=== PATIENT | female | born 1985 | race Two or more races ===

== ENCOUNTER 2016-11-11 23:11 | Emergency (ER) | payer OTHER ==
[~2016-11-11] VITALS: Ht 165.1 cm; Wt 57.6 kg
[2016-11-11] MEDS ORDERED: NKM (23:35)
[2016-11-12] MEDS ORDERED: IBUPROFEN600 MG ORAL (00:14)
[2016-11-12] MEDS ORDERED: AMOXICILLIN500 MG ORAL (00:14)
[2016-11-12 00:15] VITALS: BP 107/72
[2016-11-12 00:22] VITALS: BP 109/75
--- NOTE | 2016-11-12 05:14 | Emergency Room Report ---
History of Present Illness General Chief Complaint: Neck Pain Source: Patient Present Illness HPI 31-year-old female presents ED complaining of neck pain. States symptoms started yesterday. The pain to the right side of the neck, 8/10, throbbing, nonradiating. No other aggravating relieving factors. Denies any neck stiffness. Denies any fevers or chills. Patient states that last week she was treated for a "respiratory infection" with a Z-Frederic. Patient denies any earache or sore throat at this time. Denies any fevers or chills. No other aggravating relieving factors. Denies any other associated symptoms Allergies: Coded Allergies: No Known Allergies (Unverified , 11/11/16) Patient History Past Medical History: none Past Surgical History: none Pertinent Family History: none Social History: Denies: alcohol use, drug use, smoking Last Menstrual Period: AUG 31 Now: No : 0 Para: 0 Immunizations: UTD Reviewed Nursing Documentation: PMH: Agreed, PSxH: Agreed Nursing Documentation-PMH Past Medical History: No Stated History Review of Systems All Other Systems: negative except mentioned in HPI Physical Exam Vital Signs Date Time Temp Pulse Resp B/P Pulse Ox O2 Delivery O2 Flow Rate FiO2 11/11/16 23:30 98.6 86 18 107/72 98 Room Air Sp02 EP Interpretation: reviewed, normal General Appearance: no apparent distress, alert, GCS 15, non-toxic Head: normocephalic Eyes: bilateral eye PERRL, bilateral eye normal inspection ENT: hearing grossly normal, normal pharynx, no angioedema, normal voice, TMs + canals normal Neck: full range of motion, no meningismus, no bony tend, supple/symm/no masses Respiratory: chest non-tender, lungs clear, normal breath sounds, speaking full sentences Cardiovascular #1: regular rate, rhythm, no edema Gastrointestinal: normal inspection Rectal: deferred Genitourinary: no CVA tenderness Musculoskeletal: normal inspection Neurologic: alert, oriented x3, responsive, motor strength/tone normal, sensory intact, speech normal Psychiatric: normal inspection Skin: normal inspection Lymphatic: adenopathy - R cervical Medical Decision Making Diagnostic Impression: Primary Impression: Lymphadenopathy of right cervical region Additional Impression: Neck pain ER Course Hospital Course 31-year-old female presents to ED with right-sided neck pain. Recently treated for a infection with antibiotics Differential diagnoses include: Muscle strain, otitis media, lymphadenopathy Clinical course Patient placed on stretcher. After initial history, physical exam reveals a young female in no acute distress. Bilateral TM unremarkable. No pharyngeal erythema. No tonsillar exudates. There is some pronounced submandibular lymphadenopathy on the right side Reassurance given. We will provide another round of antibiotics. Patient instructed to followup with PMD if lymphadenopathy did not resolve Diagnosis - lymphadenopathy of right cervical region, neck pain Stable and discharged home with Rx Amoxicillin, motrin. Instructed to followup with PMD. Return to ED if symptoms recur or worse Last Vital Signs Date Time Temp Pulse Resp B/P Pulse Ox O2 Delivery O2 Flow Rate FiO2 11/11/16 23:30 98.6 86 18 107/72 98 Room Air Status: improved Disposition: HOME, SELF-CARE Condition: Stable Scripts Ibuprofen* (MOTRIN*) 600 Mg Tablet 600 MG ORAL Q8H Y for For Pain, #30 TAB 0 Refills Prov: YADIEL BUENO M.D. 11/12/16 Amoxicillin* (AMOXIL*) 500 Mg Capsule 500 MG ORAL THREE TIMES A DAY, #21 CAP Prov: YADIEL BUENO M.D. 11/12/16 Referrals: NON PHYSICIAN (PCP) Patient Instructions: Lymphadenopathy YADIEL BUENO M.D. Nov 12, 2016 05:14
== END 2016-11-12 00:22 | disposition home or self-care (01) ==
LOC: EMR 23:45
DX: R59.0 Localized enlarged lymph nodes (principal); M54.2 Cervicalgia
CPT/HCPCS: 99284

== ENCOUNTER 2020-01-13 19:45 | Emergency (ER) | payer OTHER ==
[~2020-01-13] VITALS: Ht 165.1 cm; Wt 59.0 kg
[~2020-01-13 19:45] MED LIST: AMOXICILLIN500 MG ORAL; IBUPROFEN600 MG ORAL; NKM
[2020-01-13 19:50] VITALS: BP 118/87
--- NOTE | 2020-01-13 19:50 | NUR ---
ED Nurse Note: pt walked in to ED for C/O SOB and palpitation x 1 week. pt feels like her s/sx is getting worse. sp02 97% room air. HR 112. denies any cough.
--- NOTE | 2020-01-13 19:55 | NUR ---
ED Nurse Note: Received report from YSABEL Garnica. Placed patient in ortho room, patient in stable condition.
--- NOTE | 2020-01-13 20:05 | Emergency Room Report ---
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[employer] And reports that she is on a contraceptive She has been more sedentary at work as well and there were concerned about possible PE Allergies: Coded Allergies: No Known Allergies (Unverified , 11/11/16) COVID-19 Screening Contact w/high risk pt: No Recent Travel to affected area: No Experienced COVID-19 symptoms?: Yes COVID-19 symptoms experienced: Shortness of Breath Patient History Past Medical History: see triage record Last Menstrual Period: na Now: No Reviewed Nursing Documentation: PMH: Agreed; PSxH: Agreed Nursing Documentation-PMH History Of Psychiatric Problem: Yes - depression Review of Systems All Other Systems: negative except mentioned in HPI Physical Exam Vital Signs Date Time Temp Pulse Resp B/P (MAP) Pulse Ox O2 Delivery O2 Flow Rate FiO2 01/13/20 19:46 98.2 112 18 118/87 (97) 97 Room Air Sp02 EP Interpretation: reviewed, normal General Appearance: well appearing, no apparent distress Head: normocephalic, atraumatic Eyes: bilateral eye PERRL, bilateral eye EOMI ENT: hearing grossly normal, normal pharynx, TMs + canals normal, uvula midline Neck: full range of motion, supple, no meningismus, no bony tend Respiratory: lungs clear, normal breath sounds, no rhonchi, no respiratory distress, no retraction, no accessory muscle use Cardiovascular #1: normal peripheral pulses, no edema, no gallop, no JVD, no murmur, tachycardia Gastrointestinal: normal bowel sounds, non tender, soft, no mass, no organomegaly, non-distended, no guarding, no hernia, no pulsatile mass, no rebound Genitourinary: no CVA tenderness Musculoskeletal: normal inspection Neurologic: motor strength/tone normal, gaming department head III-XII nml as tested, oriented x3 , sensory intact, responsive Psychiatric: mood/affect normal Skin: no rash Lymphatic: normal inspection, no adenopathy Medical Decision Making Diagnostic Impression: Primary Impression: Palpitations ER Course Patient is a fairly complex patient with multiple differential to consideration including but not limited to cardiac cardiopulmonary and vascular emergencies Vascular emergencies including pulmonary embolism other differential such as Thyroid disease also considered Patient's initial EKG was tachycardic at 109 beats a minute Therefore d-dimer was also obtained Patient's other blood work is at baseline levels X-ray was read by radiology as normal I did repeat the EKG which was sinus at 90 beats a minute We did discuss regarding further evaluation with CT angios for pulmonary embolism Patient however saturating at 100% Heart rate has improved significantly There is no sign of any pleurisy Patient's main risk factor is contraceptive medication Given the reevaluation it was decided with patient's brother at bedside that CT angios would not be performed at this time patient will have close outpatient follow-up and return with any changes or concerns Labs Test 01/13/20 20:05 White Blood Count 12.0 K/UL (4.8-10.8) Red Blood Count 5.29 M/UL (4.20-5.40) Hemoglobin 14.5 G/DL (12.0-16.0) Hematocrit 44.7 % (37.0-47.0) Mean Corpuscular Volume 85 FL (80-99) Mean Corpuscular Hemoglobin 27.4 PG (27.0-31.0) Mean Corpuscular Hemoglobin Concent 32.4 G/DL (32.0-36.0) Red Cell Distribution Width 12.3 % (11.6-14.8) Platelet Count 266 K/UL (150-450) Mean Platelet Volume 9.0 FL (6.5-10.1) Neutrophils (%) (Auto) 52.1 % (45.0-75.0) Lymphocytes (%) (Auto) 39.0 % (20.0-45.0) Monocytes (%) (Auto) 3.9 % (1.0-10.0) Eosinophils (%) (Auto) 3.6 % (0.0-3.0) Basophils (%) (Auto) 1.5 % (0.0-2.0) D-Dimer 0.23 mg/L FEU (0.00-0.49) Urine HCG, Qualitative Negative (NEGATIVE) Sodium Level 139 MMOL/L (136-145) Potassium Level 3.9 MMOL/L (3.5-5.1) Chloride Level 101 MMOL/L (98-107) Carbon Dioxide Level 28 MMOL/L (21-32) Anion Gap 10 mmol/L (5-15) Blood Urea Nitrogen 10 mg/dL (7-18) Creatinine 0.8 MG/DL (0.55-1.30) Estimat Glomerular Filtration Rate > 60 mL/min (>60) Glucose Level 122 MG/DL (74-106) Calcium Level 10.0 MG/DL (8.5-10.1) EKG Diagnostic Results Rate: tachycardiac Rhythm: other ST Segments: no acute changes Other Impression EKG #2: Sinus rhythm no ST or T wave changes Rhythm Strip Diag. Results EP Interpretation: yes Rate: 90 Rhythm: NSR, no PVC's, no ectopy Chest X-Ray Diagnostic Results Chest X-Ray Diagnostic Results : Chest X-Ray Ordered: Yes # of Views/Limited/Complete: 1 View Indication: Chest Pain EP Interpretation: No Interpretation: no consolidation, no effusion, no pneumothorax Impression: No acute disease Electronically Signed by: X-ray interpreted by radiology Last Vital Signs Date Time Temp Pulse Resp B/P (MAP) Pulse Ox O2 Delivery O2 Flow Rate FiO2 01/13/20 19:50 98.2 112 18 118/87 97 Room Air Status: improved Disposition: HOME, SELF-CARE Condition: Improved Additional Instructions: Patient is provided with the discharge instructions notified to follow up with primary doctor in the next 2-3 days otherwise return to the er with any worsening symptoms. Please note that this report is being documented using [employer] technology. This can lead to erroneous entry secondary to incorrect interpretation by the dictating instrument. Nataly Mcgarry DO Jan 13, 2020 20:04
[2020-01-13 20:20] LABS: BASOPHILS % (AUTO) 1.5 % (0.0-2.0); EOSINOPHILS % (AUTO) 3.6 % (0.0-3.0); HEMATOCRIT 44.7 % (37.0-47.0); HEMOGLOBIN 14.5 G/DL (12.0-16.0); MEAN CORPUSCULAR VOLUME 85 FL (80-99); MONOCYTES % (AUTO) 3.9 % (1.0-10.0); NEUTROPHILS % (AUTO) 52.1 % (45.0-75.0); PLATELET COUNT 266 K/UL (150-450); RED BLOOD COUNT 5.29 M/UL (4.20-5.40); RED CELL DISTRIBUTION WIDTH 12.3 % (11.6-14.8)
--- NOTE | 2020-01-13 20:23 | NUR ---
ED Nurse Note: Xray at bedside.
[2020-01-13 20:30] LABS: ANION GAP 10 mmol/L (5-15); BLOOD UREA NITROGEN 10 mg/dL (7-18); CARBON DIOXIDE 28 MMOL/L (21-32); CHLORIDE 101 MMOL/L (98-107); CREATININE 0.8 MG/DL (0.55-1.30); POTASSIUM 3.9 MMOL/L (3.5-5.1); SODIUM 139 MMOL/L (136-145)
--- NOTE | 2020-01-13 20:56 | Diagnostic Imaging Report ---
EXAM: XR Chest, 1 View CLINICAL HISTORY: SOB TECHNIQUE: Frontal view of the chest. COMPARISON: No relevant prior studies available. FINDINGS: Lungs: Unremarkable. No consolidation. Pleural space: Unremarkable. No pneumothorax. Heart: Unremarkable. No cardiomegaly. Mediastinum: Unremarkable. Bones/joints: Unremarkable. IMPRESSION: Normal chest x-ray.
[2020-01-13 21:17] VITALS: BP 120/82
--- NOTE | 2020-01-13 21:17 | NUR ---
ER DISCHARGE NOTE: Patient is cleared to be discharged per ERMD, pt is aox4, on room air, with stable vital signs. pt was given dc instructions, pt was able to verbalize understanding, pt id band and iv site removed intact without complications. pt is able to ambulate with steady gait. pt took all belongings. pt stable upon discharge accompanied by .
== END 2020-01-13 21:17 | disposition home or self-care (01) ==
LOC: EDBD 19:45 → EMR 20:28
DX: R00.2 Palpitations (principal); R06.02 Shortness of breath; R00.0 Tachycardia, unspecified; F32.9 Major depressive disorder, single episode, unspecified
CPT/HCPCS: 36415; 71045; 80048; 81025; 85025; 85379; 93005; 99284